=== PATIENT | male | born 1980 | race Caucasian/White ===

== ENCOUNTER 2023-02-05 08:59 | Emergency (ER) | payer MEDICAID ==
[~2023-02-05] VITALS: Ht 177.8 cm; Wt 89.8 kg
[2023-02-05 09:24] VITALS: BP_SYST 103; PULSE 68; RESP 20; TEMP 98.4; O2SAT 98
--- NOTE | 2023-02-05 09:28 | NUR ---
Patient to ER bed 3 to gown for evaluation. Side rails up. Report given to TRISH FIORE.
--- NOTE | 2023-02-05 09:29 | NUR ---
PT CAME IN TO ED W/ C/O ABDOMINAL PAIN, FEVERS AND THROWING UP BLOOD ALL LAST NIGHT. HX OF STOMACH ULCER, NO OTHER HX. PT STATES THEY ATE SPICY FOOD LAST NIGHT. VITALS ARE STABLE, PT IS A/OX4 Addendum: 02/05/23 at 0938 by [email or web address] PT HAS HX OF METH USE
--- NOTE | 2023-02-05 09:34 | NUR ---
MD DR PASTRANA AT BEDSIDE
[2023-02-05] MEDS ORDERED: FAMOTIDINE 20 MG TABLET PO ONE (09:45)
[2023-02-05] MEDS ORDERED: MAG-AL HYDROX/SIMETH 30 ML UDC PO ONE (09:45)
[2023-02-05] MEDS ORDERED: ONDANSETRON 4 MG ODT TAB PO ONE (09:45)
--- NOTE | 2023-02-05 09:57 | NUR ---
PT GIVEN MYLANTA, ZOFRAN AND PEPCID
[2023-02-05 09:59] LABS: BASOPHILS % (AUTO) 0.5 % (0.0-2.0); EOSINOPHILS # (AUTO) 0.1 K/uL (0.0-0.4); EOSINOPHILS % (AUTO) 1.5 % (0.0-4.0); HEMOGLOBIN 14.5 g/dL (14.0-18.0); LYMPHOCYTES # (AUTO) 1.9 K/uL (1.0-5.5); LYMPHOCYTES % (AUTO) 26.8 % (20.5-51.5); MEAN CORPUSCULAR HEMOGLOBIN 29 pg (27-31); MEAN CORPUSCULAR HGB CONC 33 % (32-36); MEAN CORPUSCULAR VOLUME 89 fL (79.0-98.0); MONOCYTES # (AUTO) 0.7 K/uL (0.0-1.0); MONOCYTES % (AUTO) 10.1 % (1.7-9.3); NEUTROPHILS # (AUTO) 4.4 K/uL (1.8-7.7); NEUTROPHILS % (AUTO) 61.1 % (40.0-70.0); PLATELET COUNT (AUTO) 299 K/uL (130-430); RED BLOOD CELL COUNT(AUTO) 4.97 MIL/uL (4.2-6.2); RED CELL DISTRIBUTION WIDTH 13.7 % (9.0-15.0); WHITE BLOOD COUNT (AUTO) 7.2 K/uL (4.8-10.8)
[2023-02-05 10:19] LABS: ALBUMIN 4.1 g/dL (3.4-4.8); CALCIUM 8.7 mg/dL (8.4-11.0); CREATININE 1.17 mg/dL (0.55-1.30); TOTAL BILIRUBIN 0.5 mg/dL (0.0-1.0)
[2023-02-05] MEDS ORDERED: ONDA-8 TL (10:25)
[2023-02-05] MEDS ORDERED: OMEP40CA20 PO (10:25)
[2023-02-05 11:09] VITALS: BP_SYST 110; PULSE 69; RESP 18; TEMP 98.5; O2SAT 99
--- NOTE | 2023-02-05 11:10 | NUR ---
Patient given written and verbal discharge instructions and verbalizes understanding. ER MD PASTRANA discussed with patient the results and treatment provided. Patient in stable condition. ID arm band removed. Rx of OMEPRAZOLE, ZOFRAN given. Patient educated on pain management and to follow up with PMD. . Opportunity for questions provided and answered. Medication side effect fact sheet provided.
== END 2023-02-05 11:10 | disposition home or self-care (01) ==
LOC: SED 08:59
DX: K92.0 Hematemesis (principal); R19.7 Diarrhea, unspecified; F12.90 Cannabis use, unspecified, uncomplicated; Z79.899 Other long term (current) drug therapy
CPT/HCPCS: 99284; 71045; 80053; 83690; 85025; 36415; Q0162

== ENCOUNTER 2024-02-06 17:37 | Emergency (ER) | payer MEDICAID ==
[~2024-02-06] VITALS: Ht 175.3 cm; Wt 86.2 kg
[~2024-02-06 17:37] MED LIST: OMEP40CA20 PO; ONDA-8 TL
[2024-02-06 17:42] VITALS: BP_SYST 123; PULSE 66; RESP 20; TEMP 98.3; O2SAT 98
[2024-02-06] MEDS ORDERED: FLUORESCEIN SODIUM 1 MG OPHTHALMIC STRIP OP ONE (18:15)
[2024-02-06] MEDS: TETRACAINE HCL/PF 0.5% OPHTHALMIC DROPS 4 ML OP ONE (18:16)
[2024-02-06 18:45] VITALS: BP_SYST 120; PULSE 73; RESP 16; TEMP 97.6; O2SAT 96
[2024-02-06] MEDS ORDERED: MOXI3DRO OP (19:21)
== END 2024-02-06 19:29 | disposition home or self-care (01) ==
LOC: SED 17:37
DX: H16.132 Photokeratitis, left eye (principal)
CPT/HCPCS: 99283